=== PATIENT | female | born 2000 | race African-American/Black ===

== ENCOUNTER 2021-12-13 15:08 | Emergency (ER) | payer OTHER ==
[~2021-12-13] VITALS: Ht 157.5 cm; Wt 107.7 kg
[2021-12-13] MEDS ORDERED: CEFTRIAXONE 1 GM in SODIUM CHLORIDE 0.9% 50ML 50 ML IV ONE (17:00)
[2021-12-13] MEDS ORDERED: SODIUM CHLORIDE 0.9% 50ML 50 ML ONE (17:05)
[2021-12-13] MEDS ORDERED: CEFTRIAXONE 1 GM VIAL ONE (17:05)
[2021-12-13] MEDS ORDERED: CEFUROXIME500 MG PO (17:32)
[2021-12-13] MEDS ORDERED: ONDANSETRON ODT4 MG PO (17:33)
[2021-12-13] MEDS ORDERED: NORGESTIMATE-E1 EAC1 PO (17:41)
[2021-12-13] MEDS ORDERED: PYRIDIUM200 MG PO (17:42)
== END 2021-12-13 17:53 | disposition home or self-care (01) ==
LOC: FSED 16:19
DX: R30.0 Dysuria (principal); N39.0 Urinary tract infection, site not specified; N92.1 Excessive and frequent menstruation with irregular cycle
CPT/HCPCS: 81003; 81025; 85025; 99283; J0696